=== PATIENT | female | born 1985 | race Caucasian/White ===

== ENCOUNTER 2020-07-11 08:09 | Emergency (ER) | payer MEDICAID, SELFPAY ==
[2020-07-11 08:11] VITALS: BP 119/84; PULSE 75; RESP 16; TEMP 36.6; O2SAT 97; BMI 21.9
[2020-07-11 08:23] VITALS: BP 119/84; PULSE 83; RESP 18; O2SAT 96
--- NOTE | 2020-07-11 08:38 | W.ED.CHESTPA ---
HPI - Chest Pain General: Chief Complaint: Chest Pain Stated Complaint: Chest Pain Time Seen by Provider: 07/11/20 08:13 History of Present Illness: HPI narrative: 35-year-old female patient reports onset of left upper extremity numbness and tingling times several weeks. She reports development of sharp pain underneath her left breast that started last night. She reports pain is worse with movement, reports pain is worse with taking in deep breath. States currently moving, has been lifting heavy equipment in her shop past several weeks. She reports pain is worse with lifting of the left upper extremity at the shoulder. MD complaint: chest pain Pertinent past history: other (None) Onset (ago): hour(s) (12) Timing of current episode: episodic and now resolved Prior episodes: No Onset: other (With movement) Severity: mild (When occurs, ibuprofen helps) Pain scale (0-10): 2 Quality: sharp Relieving factors: remaining still and other (Ibuprofen) Exacerbating factors: other (Movement of the left arm, deep breath or movement of the torso) Context: other (Moving heavy equipment) Associated symptoms: Reports no associated symptoms; Deny abdominal pain, diaphoresis, dyspnea, fever(s), nausea, palpitations or vomiting Treatment prior to arrival: other (Ibuprofen) Review of Systems General: Reports: 10 or more systems reviewed and unremarkable except in HPI and below Const: Denies: fever(s), chills or diaphoresis Eyes: Denies: blurry vision or eye redness ENMT: Denies: throat pain, dental pain or disequilibrium Card: Reports: chest pain; Denies: palpitations or irregular heart rhythm Resp: Denies: dyspnea, productive cough, non-productive cough or wheezing GI: Denies: abdominal pain, nausea or vomiting : Denies: difficulty voiding or dysuria Musc: Reports: back pain (middle and lower back) and other (LUE numbness and tingling ); Denies: neck pain, joint stiffness or limited range of motion Skin/Breast: Denies: rash or pruritus Neuro: Denies: headache(s), weakness in extremities or behavioral changes Psych: Denies: anxiety or depression Josef/Lymph: Denies: easy bruising Physical Exam Const: COMMON NORMALS: no acute distress, patient oriented x3, healthy appearing and alert GENERAL APPEARANCE: cooperative, comfortable and well hydrated HENMT: COMMON NORMALS: normocephalic, Normal external nose present and moist oral mucous membranes HEAD & SCALP: normocephalic NOSE: Normal external nose present Eye: COMMON NORMALS: Equal, round and reactive pupils present and EOMs intact bilaterally GENERAL EYE: appearance normal, both eyes and all related structures PUPIL: Yes Equal, round and reactive pupils present Neck/C-Spine: COMMON NORMALS: full ROM and no lymphadenopathy GENERAL: Yes normal visual inspection and Yes trachea midline CERVICAL SPINE: Yes cervical ROM normal Lymph: LYMPHATIC: no lymphadenopathy noted Chest: COMMONS NORMALS: normal inspection of the chest CHEST: No abnormal inspection of the chest, Yes Symmetrical chest wall rise and Yes tenderness other (soft tissue tenderness to the lateral and posteior chest wall - reproduces pain she has experienced, worsens with abduction of the left shoulder, P/S 2/10) BREAST/AXILLA PALPATION: Yes normal palpation of the axillae Resp: COMMON NORMALS: normal respiratory effort and clear to auscultation bilaterally EFFORT & INSPECTION: Yes able to speak in complete sentences AUSCULTATION: clear to auscultation bilaterally and lung sounds not diminished Cardio: COMMON NORMALS: regular rhythm, S1 normal heart sound present, S2 normal heart sound present and Peripheral pulses 2+ throughout RHYTHM: regular rhythm HEART SOUNDS: S1 normal heart sound present and S2 normal heart sound present PERIPHERAL PULSES: Peripheral pulses 2+ throughout GI: COMMON NORMALS: Normal to inspection, nondistended, normoactive bowel sounds present, Soft to palpation and non-tender INSPECTION: Yes normal to inspection PALPATION: Yes Soft to palpation : COMMON NORMALS: Yes no CVA tenderness BLADDER/KIDNEY EXAM: Yes no CVA tenderness Back/Pelvis: COMMON NORMALS: no CVA tenderness and thoracic and lumbar spine normal to inspection THORACIC SPINE/UPPER BACK: Yes normal to inspection, Yes thoracic ROM normal and Yes paraspinal muscle tenderness Thoracic paraspinal muscle tenderness: left LUMBAR SPINE/LOWER BACK: Yes normal to inspection, Yes lumbar ROM normal and No lumbar spinal tenderness Extremity: COMMON NORMALS: normal to inspection and capillary refill normal GENERAL: Yes normal exam except as noted LEFT UPPER EXTREMITY: Yes shoulder joint (not able to reproduce pain to the left shoulder) Left shoulder joint: Yes ROM (full) and Yes special tests (Tinel negative Phalen negative left wrist) Neuro: NELSON COMA SCALE: document GCS findings Hamilton coma scale eye opening: Spontaneous Nelson coma scale verbal response: Orientated Hamilton coma scale motor response: Obey commands Hamilton coma scale total score: 15 COMMON NORMALS: patient oriented x3 and no focal motor deficits SENSORIUM/ORIENTATION: Yes alert SPEECH: speech normal GAIT: Yes Normal gait present SENSORY EXAM: No sensory level loss detected MONOFILAMENT EXAM PERFORMED: Yes (negative monofil exam LUE/RUE) MOTOR EXAM: 5/5 motor strength present throughout Psych: COMMON NORMALS: mental status grossly normal, Normal thought process present and cooperative ACTIVITY/MOTOR BEHAVIOR: Yes appropriate eye contact THOUGHT PROCESS: Normal thought process present Skin: COMMON NORMALS: no rashes or lesions noted and turgor normal GENERAL SKIN EXAM: no rashes or lesions noted and turgor normal Course ED course: 35-year-old female patient presents to the emergency department with left chest wall pain that worsens with elevation/abduction of the left shoulder, not able to reproduce pain to the left shoulder. Soft tissue tenderness to the left chest wall, lateral and posterior. She was encouraged to come to the emergency department due to chest pain at the request of her boyfriend. She denied nausea vomiting, reports numbness tingling of the left upper extremity past several weeks. Monitor for low exam was negative, no muscle strength loss. EKG revealed normal sinus rhythm without ST elevation/abnormalities. Patient reports ibuprofen did help with pain. She reports heavy lifting, assessment and exam with HPI indicative of chest wall strain. Advised to follow-up with her primary care provider in a couple of days, discussed EMG study may be warranted as she does engage in typing if numbness and tingling of the left upper extremity continues. She is advised to return the emergency department if her chest pain changes, she experiences nausea that radiates down the left lower extremity up into the jaw or if worsening pain is experienced. Vital Signs: Vital signs: Vital Signs Temperature 97.6 F 07/11/20 08:43 Pulse Rate 85 07/11/20 08:43 Respiratory Rate 18 07/11/20 08:43 Blood Pressure 102/63 07/11/20 08:43 Pulse Oximetry 96 07/11/20 08:43 Discharge Plan Discharge Patient Disposition: Home Clinical Impression: Chest pain, musculoskeletal Chest wall muscle strain Qualifiers: Encounter type: initial encounter Qualified Code(s): S29.011A - Strain of muscle and tendon of front wall of thorax, initial encounter Condition: Stable Prescriptions: New ibuprofen 800 mg tablet 800 mg PO TID PRN (Reason: pain) Qty: 30 RF: 0 cyclobenzaprine 10 mg tablet 10 mg PO TID PRN (Reason: muscle spasm) Qty: 14 RF: 0 Discharge Orders: Discharge Order (Routine); Ordered 07/11/20 Ordered By: Bebe James Discharge Diet: Usual diet Discharge Activity: Limit activity as instructed Patient Instructions: Chest Pain (ED), Muscle Strain (ED), Musculoskeletal Pain (ED) Activity Restrictions/Additional Instructions: Avoid heavy lifting or straining of the left upper extremity until improved registered nurse surgical services will be contacting you with an appointment with your primary care provider. 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
[2020-07-11 08:43] VITALS: BP 102/63; PULSE 85; RESP 18; TEMP 36.4; O2SAT 96
--- NOTE | 2020-07-11 09:57 | DCPLANNER ---
Addendum entered by Noelle Nicole 07/11/20 15:30: Patients friend called case finisher stating that patient would like to see a female physician. network operations project manager called [facility], spoke with [place], a follow up appointment was scheduled for Friday, July 17, 2020 at 9:[address] Christensen. network operations project manager called patients friend and gave him the appointment information. Original Note: network operations project manager had message to speak with patient about getting established with a primary care physician. network operations project manager was unable to call patient due to no phone number in patients chart. network operations project manager called patients friend number, he gave me a number for patient, unable to speak with patient or leave a voicemail for patient. Called patients friend back, case finisher gave patients friend case management rn phone number asking the friend that if patient would like help in getting established with a primary care physician to call case finisher back.
--- NOTE | 2020-07-11 12:46 | ECG_ITS ---
[facility] Test Date: 2020-07-11 Pat Name: Holli Arnold Department: Room: Gender: Female Host/Hostess Restaurant: : 1985 Requested By: Bebe Culver Order Number: [id number] Goncalves MD: Yoel Jacob M.D. Measurements Intervals [place] Rate: 65 P: 57 AK: 119 QRS: 76 QRSD: 82 T: 67 QT: 410 QTc: 428 Interpretive Statements SINUS RHYTHM WITH SINUS ARRHYTHMIA WITH SHORT AK INTERVAL No previous ECG available for comparison Electronically Signed On 07-12-2020 20:52:34 CDT by Yoel Jacob M.D. [id number] f
--- NOTE | 2020-07-20 16:42 | DCPLANNER ---
Patient had a follow up appointment scheduled for 07.11.20 with [facility] - patient did not attend appointment.
== END 2020-07-11 08:57 | disposition home or self-care (01) ==
PROVIDERS: Emergency Provider Nurse Practitioner Family
DX: S29.011A Strain of muscle and tendon of front wall of thorax, initial encounter (principal); X50.0XXA Overexertion from strenuous movement or load, initial encounter
CPT/HCPCS: 12345; 93005; 99281; 99283

== ENCOUNTER 2020-08-23 09:34 | Emergency (ER) | payer MEDICAID, SELFPAY ==
--- NOTE | 2020-08-23 09:52 | W.ED.COVID ---
HPI - COVID General: Chief Complaint: COVID symptoms Stated Complaint: fever/body aches/sob Time Seen by Provider: 08/23/20 09:38 Source: patient Mode of arrival: ambulatory Limitations: no limitations Triage information: Has fever, cough or shortness of breath. Exposure to COVID + person last 14 days History of Present Illness: HPI Narrative: 35-year-old female patient presents to the emergency department with Covid symptoms. She reports her boyfriend tested + 08/21/2020. She is requesting testing today for work purposes. She reports onset of chest congestion, fever and body aches that started abruptly yesterday around 1 PM. She denies nausea vomiting diarrhea. She reports productive cough, shortness of breath with exertion. She reports chest congestion. She is amenorrheic, Implanon to the left upper arm. She reports took IBU 20 minutes prior to arrival. MD complaint: reported COVID exposure and has COVID symptoms Prior covid testing: no COVID 19 common symptoms: positive fever(s), chills, cough, productive cough, dyspnea, fatigue, body aches, headache(s), loss of sense of smell and/or taste and nasal congestion; negative nausea, vomiting or diarrhea COVID 19 other sytmptoms: negative chest pain or confusion Onset (ago): day(s) (1) Severity: moderate Treatment prior to arrival: ibuprofen and other (Iesf-cua-lhnqkig cough syrup) COVID Results: SARS-CoV-2 RNA (RT-PCR) Pending 08/23/20 10:02 08/23/20 Review of Systems Const: Reports: fever(s), chills, body aches, change in appetite, fatigue and malaise Eyes: Denies: change in vision, blurry vision or eye discomfort ENMT: Reports: nasal congestion and post nasal drip; Denies: oral sores, ear or mastoid pain, change in hearing, nasal discharge or epistaxis Card: Reports: dyspnea on exertion; Denies: chest pain, palpitations, irregular heart rhythm, lightheadedness or orthopnea Resp: Reports: dyspnea and productive cough; Denies: wheezing GI: Denies: abdominal pain, nausea, vomiting, diarrhea, bloating or GI cramping : Denies: flank pain, difficulty voiding or urinary urgency Musc: Denies: neck pain, back pain, joint pain or joint warmth Skin/Breast: Denies: pruritus, erythema, changing lesions or changes in skin color Neuro: Reports: headache(s); Denies: numbness in extremities, difficulty walking, dizziness, vertigo, confusion, Slurred speech present or difficulty communicating thoughts Psych: Denies: anxiety or depression [facility] Female Reproductive History: control method: implanted and other Physical Exam Const: COMMON NORMALS: no acute distress, patient oriented x3, healthy appearing, alert and well nourished GENERAL APPEARANCE: cooperative, comfortable, well kempt, well developed and well hydrated NUTRITIONAL APPEARANCE: thin ORIENTATION/CONSCIOUSNESS: Yes awake, Yes oriented to person, Yes oriented to place, Yes oriented to time and Yes Other orientation findings (appears not feeling well) HENMT: COMMON NORMALS: normocephalic, atraumatic, external ears normal, Normal external nose present and moist oral mucous membranes HEAD & SCALP: normal to inspection, normocephalic and atraumatic FACE & SINUS: normal facial exam and face symmetric NOSE: Normal external nose present and Nasal discharge present clear EXTERNAL EAR: Yes external ears normal MOUTH: Normal oral and palatal mucosa present, lip normal and tongue normal THROAT: tonsils normal, uvula midline, posterior oropharynx abnormal cobblestoning and postnasal drainage Eye: COMMON NORMALS: Equal, round and reactive pupils present and EOMs intact bilaterally GENERAL EYE: appearance normal, both eyes and all related structures PUPIL: Yes Equal, round and reactive pupils present Neck/C-Spine: COMMON NORMALS: full ROM and no lymphadenopathy GENERAL: Yes normal visual inspection and Yes trachea midline CERVICAL SPINE: Yes cervical ROM normal Lymph: LYMPHATIC: no lymphadenopathy noted Chest: COMMONS NORMALS: normal inspection of the chest and normal palpation of entire chest wall CHEST: No localized rib tenderness with anteroposterior compression Resp: COMMON NORMALS: normal respiratory effort and clear to auscultation bilaterally EFFORT & INSPECTION: Yes able to speak in complete sentences, Yes symmetric chest movement, No tachypneic, No respiratory distress, No decreased respiratory effort, No labored and No paradoxical thoraco-abdominal movements AUSCULTATION: clear to auscultation bilaterally Cardio: COMMON NORMALS: regular rate, regular rhythm, S1 normal heart sound present, S2 normal heart sound present and Peripheral pulses 2+ throughout RATE: regular rate RHYTHM: regular rhythm HEART SOUNDS: S1 normal heart sound present and S2 normal heart sound present PERIPHERAL PULSES: Peripheral pulses 2+ throughout GI: COMMON NORMALS: Normal to inspection, nondistended, normoactive bowel sounds present, Soft to palpation and non-tender INSPECTION: Yes normal to inspection, No abdominal distension, No central obesity, No visible herniation and No GI erythema present PALPATION: Yes Soft to palpation : COMMON NORMALS: Yes no CVA tenderness BLADDER/KIDNEY EXAM: Yes no CVA tenderness Back/Pelvis: COMMON NORMALS: no CVA tenderness and thoracic and lumbar spine normal to inspection Extremity: COMMON NORMALS: normal to inspection and capillary refill normal Neuro: COMMON NORMALS: patient oriented x3 and no focal motor deficits SENSORIUM/ORIENTATION: Yes alert, Yes oriented to person, Yes oriented to place and Yes oriented to time SPEECH: speech normal GAIT: Yes Normal gait present MOTOR EXAM: 5/5 motor strength present throughout Psych: COMMON NORMALS: mental status grossly normal, Normal thought process present and cooperative APPEARANCE: Yes well kempt ACTIVITY/MOTOR BEHAVIOR: Yes appropriate eye contact THOUGHT PROCESS: Normal thought process present Skin: COMMON NORMALS: no rashes or lesions noted and turgor normal GENERAL SKIN EXAM: no rashes or lesions noted and turgor normal Course ED course: 35 yr old female presents with presumed COVID - requests testing for employment to continue quarantine. Reports know contact with COVID + individual, onset symptoms yesterday. Oxygen saturation remains 94-100 % RA - denies n/v/d. Able to tolerate PO fluids and solids without n/v. Rx of Albuterol, tessalon perls and Zofran provided. Zofran provided in the event she develops n/v. Agrees to f/u with her PCP next week, home O2 device sent home with patient. with instructions to monitor oxygen saturation. Agrees to return to the ED if worsening symptoms occur such as difficulty breathing, inability to catch her breath or other concerning symptoms. Vital Signs: Vital signs: Vital Signs Temperature 99.4 F 08/23/20 11:04 Pulse Rate 84 08/23/20 11:04 Respiratory Rate 16 08/23/20 11:04 Blood Pressure 102/63 08/23/20 11:04 Pulse Oximetry 94 08/23/20 11:04 MDM - COVID Imaging Data: CXR: Radiologist's impression: [address] [address] XRay Report Signed Patient: Holli Arnold Unit #: [id number] : 1985 Age/Sex: 35 / F ADM Date: 08/23/20 Loc: ER Room/Bed: Attending Dr: Ordering Provider/Ordering MD: Bebe James Date of Service: 08/23/20 Procedure(s): XR chest 1V portable [id number] Accession Number(s): [id number] Report Number: [id number] PROCEDURE INFORMATION: Exam: XR Chest, 1 View Exam date and time: 08/23/2020 10:40 AM Age: 35 years old Clinical indication: Cough; Additional info: Covid TECHNIQUE: Imaging protocol: XR of the chest Views: 1 view. COMPARISON: No relevant prior studies available. FINDINGS: Lungs: Hyperinflation, interstitial prominence, and mild right basilar airspace disease. Pleural space: No pleural effusion. Heart/Mediastinum: No cardiomegaly. Bones/joints: Unremarkable. XR/XR chest 1V portable [id number] IMPRESSION: Hyperinflation, interstitial prominence, and mild right basilar airspace disease. Dictated By: Lamine Bartholomew MD Signed By: Lamine Bartholomew MD Signed Date/Time: 08/23/201114 DD/ 13 COVID Results: SARS-CoV-2 RNA (RT-PCR) Pending 08/23/20 10:02 08/23/20 Discharge Plan Discharge Patient Disposition: Home Clinical Impression: Suspected severe acute respiratory syndrome coronavirus 2 (SARS-CoV-2) infection, Acute bronchitis due to COVID-19 virus Condition: Stable Prescriptions: New benzonatate 200 mg capsule 200 mg PO TID PRN (Reason: cough) Qty: 20 RF: 0 Zofran 4 mg tablet 4 mg PO Q4H Qty: 10 RF: 0 Ventolin HFA 90 mcg/actuation HFA aerosol inhaler 2 puff INHALATION Q4H PRN (Reason: shortness of breath or wheezing) Qty: 18 RF: 0 Continued ibuprofen 800 mg tablet 800 mg PO TID PRN (Reason: pain) Qty: 30 RF: 0 Discontinued cyclobenzaprine 10 mg tablet 10 mg PO TID PRN (Reason: muscle spasm) Qty: 14 RF: 0 Discharge Orders: Discharge Order (Routine); Ordered 08/23/20 Ordered By: Bebe James Referrals: Crys Christensen DO [Primary Care Provider] - Discharge Diet: Advance as tolerated Discharge Activity: Limit activity as instructed Patient Instructions: Acute Bronchitis (ED), Viral Syndrome (ED) Activity Restrictions/Additional Instructions: Return to the emergency department if oxygen level less than 92% on room air. If oxygen level drops 90 to 91%, take deep breaths, and seek emergency room evaluation. Return to the emergency department if you develop inability to catch your breath, chest pain, inability to breathe. Follow-up with your primary care provider next week to ensure you are improving Remain in quarantine, you will be contacted by [facility] when results of COVID-19 are available. If COVID-19 findings are positive, you will be contacted by the [facility] for further instructions. You will need to push fluids, fever can induce dehydration. You will require lots and lots of fluids. Take Tylenol, 1 gram orally ( 2 tablets 500 mg) every 8 hours as needed for body aches and fever. Do not take medication such as Advil, naproxen, Aleve or ibuprofen with prescribed ibuprofen as duplication of therapy can occur. 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
[2020-08-23 09:53] VITALS: BMI 22.8
--- NOTE | 2020-08-23 10:10 | XRR_ITS ---
PROCEDURE INFORMATION: Exam: XR Chest, 1 View Exam date and time: 08/23/2020 10:40 AM Age: 35 years old Clinical indication: Cough; Additional info: Covid TECHNIQUE: Imaging protocol: XR of the chest Views: 1 view. COMPARISON: No relevant prior studies available. FINDINGS: Lungs: Hyperinflation, interstitial prominence, and mild right basilar airspace disease. Pleural space: No pleural effusion. Heart/Mediastinum: No cardiomegaly. Bones/joints: Unremarkable. XR/XR chest 1V portable [id number] IMPRESSION: Hyperinflation, interstitial prominence, and mild right basilar airspace disease.
[2020-08-23 10:23] VITALS: BP 118/73; PULSE 88; RESP 18; TEMP 37.7; O2SAT 97
[2020-08-23 10:26] VITALS: O2SAT 97
[2020-08-23 10:36] VITALS: BP 107/72; PULSE 84; RESP 18; O2SAT 97
[2020-08-23 11:04] VITALS: BP 102/63; PULSE 84; RESP 16; TEMP 37.4; O2SAT 94
[2020-08-23 11:33] VITALS: BP 102/63; PULSE 88; RESP 20; TEMP 37.4; O2SAT 98
[2020-08-25 13:22] LABS: Quest SARS-CoV-2 RNA DETECTED (NOT DETECTED)
--- NOTE | 2020-08-25 16:10 | PC.NURSE ---
Pt called and notified of positive COVID test.
--- NOTE | 2020-08-29 07:21 | W.ED.COVID ---
HPI - COVID General: Chief Complaint: COVID symptoms Stated Complaint: fever/body aches/sob Time Seen by Provider: 08/23/20 09:38 Source: patient Mode of arrival: ambulatory Limitations: no limitations Triage information: Has fever, cough or shortness of breath. Exposure to COVID + person last 14 days History of Present Illness: Severity: moderate COVID Results: SARS-CoV-2 RNA (RT-PCR) Detected (NOT DETECTED) A 08/23/20 10:02 08/23/20 [facility] ED Female Reproductive History: control method: implanted and other Course Vital Signs: Vital signs: Vital Signs Temperature 99.4 F 08/23/20 11:33 Pulse Rate 88 08/23/20 11:33 Respiratory Rate 20 H 08/23/20 11:33 Blood Pressure 102/63 08/23/20 11:33 Pulse Oximetry 98 08/23/20 11:33 MDM - COVID Lab Data: Labs: Lab Results 08/23/20 Range/Units 10:02 SARS-CoV-2 RNA (RT -PCR) Detected A (NOT DETECTED) COVID Results: SARS-CoV-2 RNA (RT-PCR) Detected (NOT DETECTED) A 08/23/20 10:02 08/23/20 Discharge Plan Discharge Patient Disposition: Home Clinical Impression: Suspected severe acute respiratory syndrome coronavirus 2 (SARS-CoV-2) infection, Acute bronchitis due to COVID-19 virus Condition: Stable Prescriptions: New benzonatate 200 mg capsule 200 mg PO TID PRN (Reason: cough) Qty: 20 RF: 0 Zofran 4 mg tablet 4 mg PO Q4H Qty: 10 RF: 0 Ventolin HFA 90 mcg/actuation HFA aerosol inhaler 2 puff INHALATION Q4H PRN (Reason: shortness of breath or wheezing) Qty: 18 RF: 0 Continued ibuprofen 800 mg tablet 800 mg PO TID PRN (Reason: pain) Qty: 30 RF: 0 Discontinued cyclobenzaprine 10 mg tablet 10 mg PO TID PRN (Reason: muscle spasm) Qty: 14 RF: 0 Discharge Orders: Discharge Order (Routine); Ordered 08/23/20 Ordered By: Bebe James Referrals: Crys Christensen DO [Primary Care Provider] - Discharge Diet: Advance as tolerated Discharge Activity: Limit activity as instructed Patient Instructions: Acute Bronchitis (ED), Viral Syndrome (ED) Activity Restrictions/Additional Instructions: Return to the emergency department if oxygen level less than 92% on room air. If oxygen level drops 90 to 91%, take deep breaths, and seek emergency room evaluation. Return to the emergency department if you develop inability to catch your breath, chest pain, inability to breathe. Follow-up with your primary care provider next week to ensure you are improving Remain in quarantine, you will be contacted by [facility] when results of COVID-19 are available. If COVID-19 findings are positive, you will be contacted by the [facility] for further instructions. You will need to push fluids, fever can induce dehydration. You will require lots and lots of fluids. Take Tylenol, 1 gram orally ( 2 tablets 500 mg) every 8 hours as needed for body aches and fever. Do not take medication such as Advil, naproxen, Aleve or ibuprofen with prescribed ibuprofen as duplication of therapy can occur. 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
== END 2020-08-23 11:36 | disposition home or self-care (01) ==
PROVIDERS: Emergency Provider Nurse Practitioner Family; PCP Family Medicine
DX: U07.1 COVID-19 (principal); J20.8 Acute bronchitis due to other specified organisms
CPT/HCPCS: 12345; 71045; 87635; 99282; 99283

== ENCOUNTER 2020-10-18 11:14 | Emergency (ER) | payer MEDICAID, SELFPAY ==
[2020-10-18 11:26] VITALS: BP 148/98; PULSE 120; RESP 26; TEMP 37.1; O2SAT 96; BMI 21.9
--- NOTE | 2020-10-18 11:37 | XR_ITS ---
WS: [id number] Portable AP upright chest, 10/18/2020 Clinical Data: Shortness of breath/anxiety Comparison: Portable chest, 08/23/2020. Findings: No nodules, masses or effusions are seen. The heart is normal. The pulmonary vascularity is not increased. No pneumonia or pneumothorax is seen. Monitor lead is on the chest wall. There are de corative items over the patient's areola. XR/XR chest 1V portable [id number] Impression: Negative chest.
--- NOTE | 2020-10-18 11:38 | W.ED.ANXIETY ---
HPI - Anxiety General: Chief Complaint: Anxiety Stated Complaint: CP, NUMBNESS IN R ARM Time Seen by Provider: 10/18/20 11:27 Source: patient, RN notes reviewed and old records reviewed Mode of arrival: ambulatory Limitations: no limitations History of Present Illness: HPI narrative: This patient is a 35-year-old female who presents to the emergency department for acute onset of panic and anxiety and hyperventilation. Patient states that she received a text message from her significant other stated that he was leaving her. Patient recently moved to the area just to be with her significant other and she thought they were doing well together and then she gets this test to make sure is while at work. Patient is emotionally upset at this time. MD complaint: anxiety, heart racing and shortness of breath Symptoms: dyspnea, palpitations and extremity numbness/tingling Severity: severe Place: work History of similar episodes: Yes Provoking factors: emotional stress Relieving factors: nothing Exacerbating factors: thinking about event Associated symptoms: Reports nausea and palpitations; Deny chest pain, chills or fever(s) Review of Systems General: Reports: 10 or more systems reviewed and unremarkable except in HPI and below Const: Denies: fever(s), chills or body aches ENMT: Denies: throat pain or mouth pain Card: Reports: palpitations; Denies: chest pain, irregular heart rhythm, edema, swelling of feet/ankles or lightheadedness Resp: Reports: dyspnea; Denies: productive cough, non-productive cough, wheezing, stridor, pain on inspiration or change in phlegm color GI: Reports: nausea; Denies: abdominal pain : Denies: flank pain or difficulty voiding Musc: Denies: neck pain or back pain Skin/Breast: Denies: rash or pruritus Neuro: Reports: numbness in extremities Psych: Reports: anxiety and panic attacks Physical Exam Narrative: EXAM NARRATIVE: Patient is tearful and emotionally upset at this time Const: COMMON NORMALS: patient oriented x3, healthy appearing, alert and well nourished GENERAL APPEARANCE: cooperative, well kempt, in distress and anxious HENMT: COMMON NORMALS: normocephalic, atraumatic, hearing grossly normal bilaterally, external ears normal, EAC's normal, TM's normal bilaterally and Normal external nose present HEAD & SCALP: normocephalic and atraumatic NOSE: Normal external nose present EXTERNAL EAR: Yes external ears normal EXTERNAL AUDITORY CANAL: EAC's normal TYMPANIC MEMBRANE: TM's normal bilaterally Neck/C-Spine: COMMON NORMALS: no JVD Chest: COMMONS NORMALS: normal inspection of the chest and normal palpation of entire chest wall Resp: COMMON NORMALS: normal respiratory effort, No retractions, No use of accessory muscles, clear to auscultation bilaterally and percussion normal AUSCULTATION: clear to auscultation bilaterally PERCUSSION: percussion normal Cardio: COMMON NORMALS: no JVD, regular rate and regular rhythm RATE: regular rate RHYTHM: regular rhythm GI: COMMON NORMALS: Normal to inspection, nondistended, normoactive bowel sounds present, Soft to palpation and non-tender PALPATION: Yes Soft to palpation Neuro: COMMON NORMALS: patient oriented x3 SENSORIUM/ORIENTATION: Yes alert Psych: COMMON NORMALS: mental status grossly normal, Normal thought process present, cooperative, denies homicidal ideation and denies suicidal ideation APPEARANCE: Yes grossly normal and Yes well kempt THOUGHT PROCESS: Normal thought process present Course Reevaluation(s): Reevaluation #1: Patient is feeling much improved after medications.. I discussed at length with patient about issues. Patient be discharged home patient be referred to family medicine for follow-up evaluation and treatment as needed. Time: 12:22 Vital Signs: Vital signs: Vital Signs Temperature 98.8 F 10/18/20 11:26 Pulse Rate 100 10/18/20 12:15 Respiratory Rate 16 10/18/20 12:15 Blood Pressure 162/128 10/18/20 12:15 Pulse Oximetry 98 10/18/20 12:15 MDM - Anxiety Differential Diagnosis: Differential diagnosis anxiety: Likely hyperventilation, panic disorder and acute anxiety Imaging Data^: CXR: Radiologist's impression: Impression: Negative chest. EKG Data^: EKG 1: EKG interpretation date: 10/18/20 EKG interpretation time: 11:52 Prior EKG tracings: not available for review Interpretation: Chest X-Ray 10/18/20 11:37 Impression: Negative chest. Sinus tachycardia with an occasional PVC nonspecific EKG changes otherwise normal EKG Other EKG comments: Chest X-Ray 10/18/20 11:37 Impression: Negative chest. Lab Data: Attestation: I reviewed the patient's lab results. Labs: Lab Results 10/18/20 Range/Units 11:57 HCG, Qual Negative (Negative) Discharge Plan Discharge Patient Disposition: Home Clinical Impression: Acute anxiety, Panic disorder Condition: Stable Prescriptions: No Action ibuprofen 800 mg tablet 800 mg PO TID PRN (Reason: pain) Qty: 30 RF: 0 Discharge Orders: Discharge ED (Routine); Ordered 10/18/20 Ordered By: Jaime Ramirez Referrals: Mike Mccormick MD [Physician] - Discharge Diet: Advance as tolerated and Usual diet Discharge Activity: Resume usual activity Patient Instructions: Generalized Anxiety Disorder (ED) Activity Restrictions/Additional Instructions: Follow-up with primary care as instructed Coding Level of Care Code ED Metallurgical Inspector for Chg Fwd Exam Comprehensive
[2020-10-18 11:41] VITALS: BP 137/110; PULSE 126; RESP 18; O2SAT 98
[2020-10-18] MEDS: OLANZapine 10 mg TABLET PO (12:14)
[2020-10-18 12:15] VITALS: BP 162/128; PULSE 100; RESP 16; O2SAT 98
[2020-10-18 12:19] LABS: HCG Qualitative Urine. Negative (Negative)
[2020-10-18 12:26] LABS: Amphetamines Screen Urine Negative (Negative); Barbiturates Screen Urine Negative (Negative); Benzodiazepines Screen Urine Negative (Negative); Cocaine Screen Urine Negative (Negative); Opiate Screen Urine Negative (Negative); PCP Screen Urine Negative (Negative); THC Screen Urine Negative (Negative)
[2020-10-18 12:27] LABS: Add Urine Microscopic? YES; Bilirubin Urine Neg (Negative); Blood Urine Neg (Negative); Glucose Urine UA Norm (Normal); Ketones Urine Negative (Negative); Leukocyte Esterase Urine Negative (Negative); Nitrate Urine Negative (Negative); Protein Urine Trace (Negative); Urine Appearance SL Hazy (CLEAR); Urine Color Yellow (Yellow); Urobilinogen Urine 1 mg/dL (Negative); pH Urine 7 (5-7)
[2020-10-18 12:29] LABS: RBC Urine 0-4 /hpf (0-2); WBC Urine 0-4 /hpf (0-5)
[2020-10-18 12:30] LABS: Add Urine Culture? No; Bacteria Urine TRACE /hpf; Mucus Urine 2+ /hpf; Squamous Epithelial Cell Urine 0-4 /hpf (0-5)
[2020-10-18 12:40] VITALS: BP 132/98; PULSE 90; RESP 16; O2SAT 95
== END 2020-10-18 12:40 | disposition home or self-care (01) ==
PROVIDERS: Emergency Provider Emergency Medicine
DX: F41.9 Anxiety disorder, unspecified (principal); F41.0 Panic disorder [episodic paroxysmal anxiety]
CPT/HCPCS: 12345; 71045; 80306; 81001; 81025; 99282; 99283

== ENCOUNTER → 2021-03-11 14:33 | Outpatient (BNVA) | payer MEDICAID, SELFPAY | PROVIDERS: Visit Provider Obstetrics & Gynecology | DX: Z01.419 Encounter for gynecological examination (general) (routine) without abnormal findings (principal); Z87.42 Personal history of other diseases of the female genital tract | CPT/HCPCS: 81025; 88175 ==